=== PATIENT | female | born 1970 | race Caucasian/White ===

== ENCOUNTER 2016-07-08 08:58 | Emergency (ER) | payer BC, OTHER ==
[~2016-07-08] VITALS: Ht 152.4 cm; Wt 68.6 kg
[2016-07-08 09:00] VITALS: Ht 152.4 cm; Wt 68.6 kg
[2016-07-08] MEDS ORDERED: ACET325T51 PO (09:07)
[2016-07-08] MEDS ORDERED: NO ROUTINE MEDS (09:09)
--- NOTE | 2016-07-08 09:22 | ERPDOC ---
Departure Disposition Decision Date: Jul 08, 2016 Disposition Decision Time: 10:26 Disposition: 01 DISCHARGED HOME, SELF-CARE Impression Impression Impression: Primary Impression: Viral syndrome Additional Impression: Acute bronchitis Bronchitis organism: unspecified organism Qualified Codes: J20.9 - Acute bronchitis, unspecified Severity: Mild Condition: Improved Seen By: Physician only Referrals: [facility] 2 Days Patient Instructions: Viral Syndrome (ED) Problems/Meds/Labs Reviewed?: Yes Medications reviewed and manag: Yes Follow up care ordered?: Yes Mental Status: Alert, Oriented Scripts Azithromycin (Zithromax Tri-Mat) 500 Mg Tablet 500 MG PO DIRECTED, #1 PACK 0 Refills 2 TABLETS FOR 1 DAY THEN, 1 TABLET FOR 4 DAYS Prov: AMANUEL MARMOLEJO DO 07/08/16 HPI - General Medical General Chief Complaint: General Stated Complaint: BODY ACHES Time Seen by Provider: 09:08 Source: patient Exam Limitations: no limitations HPI - General Medical Initial Comments 45-year-old female presents to the emergency department with a chief complaint of body aches, dry cough, and nasal congestion. Patient noted onset of symptoms 2 days ago while at home. Symptoms have been persistent in nature since onset. She describes the body aches as generalized. They are moderate in nature. No radiation. She notes improvement of symptoms with acetaminophen. Patient denies any other complaints or associated symptoms. She was exposed to a family member who is been ill with similar symptoms. She was at home when her symptoms began. Symptoms have been persistent in nature since onset. Symptoms have had a gradual progression. Occurred At: home Onset: Gradual Allergies: Coded Allergies: No Known Allergies (Unverified , 07/08/16) Past History Past Medical History Pt denies signifigant PMH Hx Echocardiogram: No Surgical History Denies Surgeries Family History Family History: Negative Family PMH: FOUND: other Vaccines Hx Tetanus, Diptheria, Pertuss: Yes (2 YRS AGO) Social History Smoking Status: Never smoker Substance Use Type: does not use Alcohol Intake: none Review of Systems Constitutional Constitutional: DENIES: chills, fever Eyes General: DENIES: erythema, exudate Lids/Accessories: DENIES: erythema, swelling Vision: DENIES: acuity, blurring ENMT Ears: DENIES: drainage, erythema Hearing: DENIES: hearing loss Balance: DENIES: ataxia, falling to one side Sinuses: congestion, DENIES: pain Nose: DENIES: nosebleeds, pain Mouth/Throat: DENIES: painful swallowing, sore throat Teeth: DENIES: pain Jaw: DENIES: pain Cardiovascular Cardiac: DENIES: chest pain, dyspnea on exertion Rhythm/Rate: DENIES: irregular beat, palpitations Vascular: DENIES: pedal edema, unilateral swelling Pulmonary Respiratory: cough, DENIES: dyspnea, pleuritic chest pain, sputum GI Upper Abdomen: DENIES: nausea, pain, vomiting Lower Abdomen: DENIES: diarrhea, pain General: DENIES: dysuria, pain Musculoskeletal General: tenderness (Bodyaches), DENIES: joint pain Integumentary Skin: DENIES: itching, rash Neurological General: DENIES: headache, numbness, weakness Psychiatric Psychiatric: DENIES: emotional instability, suicidal ideation/attempt Endocrine Endocrine: DENIES: polydipsia, polyphagia Hematologic/Lymphatic Hematologic/Lymphatic: DENIES: frequent nosebleeds, lymphadenopathy Allergic/Immunological Allergic/Immunoligical: DENIES: allergic reactions, hives Physical Exam General General Nourishment: well nourished, well developed, appears stated age, no acute distress, adult General Body Habitus: well groomed Vitals and Pain First Documented Vital Signs Date Time Temp Pulse Resp B/P Pulse Ox O2 Delivery O2 Flow Rate FiO2 07/08/16 09:00 99.1 92 20 124/73 96 Room Air Weight: Kilograms: 68.600 Height (feet): 5 Height (inches): 0 Triage Pain Scale: RN VS reviewed by Provider: Yes Normal Exams: Head: Normocephalic w/o trauma Eyes: Pupils are PERRLA w/ EOMI, No scleral icterus, irritation, or foreign bodies noted ENMT: No facial trauma, nasal exudates, pharyngeal erythema, or exudates are noted Dental: No fractured, loose, or missing teeth noted Neck: Full range of motion, without adenopathy, JVD, bruits or thyromegaly Chest/Resp: Clear all jimenez, with good airflow, and symmetry bilaterally CV: Regular rate and rhythm, without murmur or gallop, Pulses 2+ all extremities, capillary refill, <2 seconds all ext., no pedal edema noted Abdomen: Bowel sounds positive, soft, non-tender, non-distended, no hepatosplenomegaly, masses or bruits noted Lymphatic: No lymphadenopathy, or lymphedema noted Musculoskeletal: No tenderness, or deformity noted, good range of motion, all extremities Integumentary: No rashes, hives, or bruising noted, hair and nails, without abnormality Neurologic: Patient is alert, and oriented, cranial nerves, motor/sensory/ cerebellar, exams w/o gross deficits, to observation Psychiatric: Patient exhibits, appropriate attention, emotion and affect ENMT (brief) Comments ENT - mild pharyngeal erythema. No tonsillar exudate. No sign of abscess. Uvula midline. Voice is normal. Handling secretions without difficulty. Neck (brief) Neck: FOUND: trachea midline, NOT FOUND: nuchal rigidity, tenderness Differential Diagnoses Considering: Pneumonia, Other (viral syndrome/acute bronchitis/influenza) Progress Results/Orders Orders Procedure Category Date Status Time Influenza A/B Screen LAB 07/08/16 Complete 09:14 Chest, Pa & Lateral RAD 07/08/16 Resulted 09:14 Ibuprofen (Motrin) PHA 07/08/16 In Process 10:45 Lab Results Laboratory Tests Test 07/08/16 09:18 Influenza Type A Antigen Negative Influenza Type B Antigen Negative Medications Current ED Medications Ibuprofen (Motrin) 600 mg O ONCE PO ; Start 07/08/16 at 10:45; Stop 07/08/16 at 10:46 Progress Progress Labs / imaging were discussed in detail with the patient and questions are answered. Patient is given analgesic pain medication in the emergency department which improved her body aches. Patient is discharged home in improved condition. Patient is to follow up as instructed. Patient's to return to the emergency Department if her condition worsens or changes in any manner. Patient is in agreement with the current plan of management. Patient is provided with a prescription for a Z-Mat for acute bronchitis. The rest of the patient's symptoms are most likely secondary to a viral syndrome. Patient is in agreement with the current plan of management. She is to continue to use [id number] acetaminophen/Motrin as needed for pain/fever control. She is to follow up as instructed. Xray Xray : Xray: CXR PA/Lat Interpretation: Normal, Reviewed Written Report AMANUEL MARMOLEJO DO Jul 08, 2016 09:22
[2016-07-08 09:51] LABS: INFLUENZA A AG SCREEN NEGATIVE (NEGATIVE); INFLUENZA B AG SCREEN NEGATIVE (NEGATIVE)
--- NOTE | 2016-07-08 09:58 | NUR ---
RADIOLOGY PT TO RADIOLOGY PER CART
--- NOTE | 2016-07-08 10:12 | NUR ---
RADIOLOGY PT FROM RADIOLOGY PER CART
--- NOTE | 2016-07-08 10:21 | DI ---
INDICATION: ITS.REASON: cough PROCEDURE: CHEST 2-VIEWS UPRIGHT (PA \T\ LAT) Encounter: Initial COMPARISON: None FINDINGS: The lungs are clear without evidence of focal abnormal airspace opacity. There is no pleural effusion or pneumothorax. Round densities projecting over the left lung field which are external to the patient. The heart size, mediastinal contours and pulmonary vascularity are within normal limits. There is no significant skeletal abnormality. IMPRESSION: No acute cardiopulmonary disease. .
[2016-07-08] MEDS ORDERED: AZIT500T2 PO (10:32)
[2016-07-08] MEDS ORDERED: IBUPROFEN 600 MG TABLET PO ONE (10:45)
--- NOTE | 2016-07-08 10:50 | NUR ---
MEDICATION MOTRIN 600MG PO ADMINISTERED
[2016-07-08 10:53] VITALS: BP 122/77; PULSE 88; RESP 18; TEMP 99.1; O2SAT 97
--- NOTE | 2016-07-08 10:53 | NUR ---
DISMISSAL DISMISSAL INSTRUCTIONS WITH WORK NOTE TO PT. NO FURTHER QUESTIONS AT THIS TIME. PT LEFT DEPARTMENT AMBUALTORY
== END 2016-07-08 10:53 | disposition home or self-care (01) ==
LOC: ED 08:58
DX: J20.9 Acute bronchitis, unspecified (principal); B34.9 Viral infection, unspecified
CPT/HCPCS: 87400